=== PATIENT | male | born 1995 | race Native Hawaiian/Other Pacific Islander ===

== ENCOUNTER 2016-11-16 09:27 | Emergency (ER) | payer OTHER ==
[2016-11-16] MEDS ORDERED: ISOVUE-370 76% 100ML VIAL (Q9967) As Ordered ONE (10:00)
[2016-11-16] MEDS ORDERED: methylPREDNISolone INJ 125 MG/2 ML VIAL (J2930) As Ordered ONE (10:39)
[2016-11-16] MEDS ORDERED: KETOROLAC 30 MG/ML VIAL (J1885) As Ordered ONE (10:39)
[2016-11-16] MEDS ORDERED: CLINDAMYCIN 600 MG/50 ML PREMIX BAG As Ordered ONE (10:39)
[2016-11-16 10:42] LABS: BASO # 0.1 K/mm3 (0.0-0.2); BASO % 0.5 % (0.0-1.0); EOS # 0.2 K/mm3 (0.0-0.50); EOS % 1.5 % (0.0-3.0); LARGE UNSTAINED CELL # 0.1 K/mm3 (0.0-0.4); LARGE UNSTAINED CELL % 0.9 % (0.0-4.0); LYMPH # 1.3 K/mm3 (1.5-6.5); LYMPH % 7.4 % (24.0-44.0); MEAN CORPUSCULAR HEMOGLOBIN 31.1 pg (27.0-33.0); MEAN CORPUSCULAR HGB CONC 33.9 g/dl (32.0-36.5); MEAN CORPUSCULAR VOLUME 91.6 fl (80.0-96.0); MONO # 0.8 K/mm3 (0.0-0.8); MONO % 5.3 % (0.0-5.0); NEUTROPHILS # 12.8 K/mm3 (1.8-7.7); NEUTROPHILS % 84.4 % (36.0-66.0); PLATELET COUNT, AUTOMATED 231 k/mm3 (150-450); RED CELL DISTRIBUTION WIDTH 12.5 % (11.5-14.5); WHITE BLOOD COUNT 15.2 K/mm3 (4.0-10.0)
[2016-11-16 11:07] LABS: ANION GAP 8 MEQ/L (8-16); BLOOD UREA NITROGEN 13 MG/DL (7-18); CALCIUM LEVEL 9.2 MG/DL (8.5-10.1); CARBON DIOXIDE LEVEL 28 MEQ/L (21-32); CHLORIDE LEVEL 104 MEQ/L (98-107); CREATININE FOR GFR 1.12 MG/DL (0.70-1.30); GLOMERULAR FILTRATION RATE > 60.0 (>60); GLUCOSE, FASTING 90 MG/DL (70-105); SODIUM LEVEL 140 MEQ/L (136-145)
--- NOTE | 2016-11-16 12:00 | EDDOCDS ---
Physician Documentation [facility] Name: Drew Maynard Age: 21 yrs Sex: Male : 1995 Arrival Date: 11/16/2016 Time: 09:27 Bed TR7 Private MD: Kaushik Oro [facility] Disposition: 11/16/16 11:42 Discharged to Home/Self Care. Impression: Acute recurrent tonsillitis, unspecified. - Condition is Stable. - Discharge Instructions: Tonsillitis. - Prescriptions for lidocaine HCl 2 % Mucous Membrane solution - take 15 milliliters by ORAL route every 3 hours As needed Swish, gargle and spit.; 200 milliliter. Clindamycin HCl 300 mg Oral Capsule - take 1 capsule by ORAL route every 6 hours; 40 capsule. Prednisone 20 mg Oral Tablet - take 2 tablet by ORAL route once daily for 5 days; 10 tablet. - Medication Reconciliation, Local Pharmacy Hours form. - Follow up: Emergency Department; When: As needed; Reason: Worsening of conditions. Follow up: Kaushik Oro [facility]; When: Call to arrange an appointment; Reason: Wound/Symptom Recheck, Recheck today's complaints, Worsening of conditions, Continuance of care, referral to ENT. Follow up: Guillermo Osorio; When: Call to arrange an appointment; Reason: Wound/Symptom Recheck, Recheck today's complaints, Continuance of care. - Problem is an ongoing problem. - Symptoms have improved. Historical: - Allergies: no known allergies; - Home Meds: 1. none - PMHx: none; - PSHx: none; - Social history: Smoking status: Patient uses tobacco products, current every day smoker. No barriers to communication noted, The patient speaks fluent Finnish, Speaks appropriately for age. - Family history: Not pertinent. - : The pt / caregiver states he / she is not on anticoagulants. Home medication list is obtained from the patient. - Exposure Risk Screening:: None identified. Vital Signs: 11/16 09:29 BP 123 / 64; Pulse 76; Resp 18; Temp 98.7(T); Pulse Ox 100% on R/A; Weight 94.35 kg / dem1 208.01 lbs (R); Height 6 ft. 3 in. (190.50 cm) (R); Pain 2/10; 11:40 BP 134 / 60; Pulse 76; Resp 18; Temp 97.0; Pulse Ox 96% on R/A; Pain 7/10; ttb 09:29 Body Mass Index 26.00 (94.35 kg, 190.50 cm) dem1 MDM: 09:52 IV Saline Lock ordered. cc10 09:52 Clindamycin 600 mg IVPB once over 30 mins; dilute in 50mL of NS or D5W ordered. cc10 09:52 Solu-MEDROL 125 mg IVP once ordered. cc10 09:52 ketorolac 30 mg IVP once ordered. cc10 09:53 CBC with Diff Ordered. EDMS 09:53 BMP Ordered. EDMS 09:54 CT Neck With Contrast Ordered. EDMS 10:25 [facility] Payment Agreement was scanned into [employer] and attached to record. pm4 10:26 Financial registration complete. pm4 11:56 CBC with Diff Reviewed. cc10 11:56 BMP Reviewed. cc10 Administered Medications: 10:40 Drug: ketorolac 30 mg [ketorolac 30 mg/mL (1 mL) injection solution (1 mL)] Route: IVP; kr3 Site: left antecubital; 11:30 Follow up: Response: No Adverse Reaction; Pain is decreased ttb 10:42 Drug: Solu-MEDROL 125 mg [Solu-Medrol 500 mg intravenous solution (125 mg)] Route: IVP; kr3 Site: left antecubital; 12:00 Follow up: Response: No Adverse Reaction ttb 10:45 Drug: Clindamycin 600 mg [clindamycin 600 mg/50 mL in 5 % dextrose intravenous kr3 piggyback] Route: IVPB; Infused Over: 30 mins; Site: left antecubital; 11:59 Follow up: Response: No Adverse Reaction; IV Status: Completed infusion ttb Signatures: Dispatcher [employer] EDMS Barb Pinzon RN RN kr3 Nelda Saucedo RN RN ttb Buck Tran PA-C PA-C cc10 Suhail Arellano, Adolfo Reg pm4 The chart was reviewed and I authenticate all verbal orders and agree with the evaluation and treatment provided.Attachments: 10:25 [facility] Payment Agreement pm4 MTDD
--- NOTE | 2016-11-16 12:00 | EDDOCDS ---
Nurse's Notes [facility] Name: Drew Maynard Age: 21 yrs Sex: Male : 1995 Arrival Date: 11/16/2016 Time: 09:27 Bed TR7 Private MD: Kaushik Oro [facility] Diagnosis: Acute recurrent tonsillitis, unspecified Presentation: 11/16 09:45 Presenting complaint: Patient states: has tonsillitis and was told to come for kr3 drainage. was on antibiotics 2 weeks ago for same. Adult Sepsis Screening: The patient does not have new or worsening altered mentation. Patient's respiratory rate is less than 22. Systolic blood pressure is greater than 100. Patient has a qSOFA score of 0- Negative Sepsis Screen. Suicide/Homicide risk assessment- the patient denies having any suicidal and/or homicidal ideations and does not present with any other emotional, behavioral or mental health complaints. 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 Transition of care: patient was not received from another setting of care. 09:45 Acuity: SHRUTHI Level 4 kr3 09:45 Method Of Arrival: Walkin/Carried/Asstd kr3 Triage Assessment: 09:46 General: Appears in no apparent distress, comfortable, Behavior is cooperative. Pain: kr3 Location: throat Pain currently is 8 out of 10 on a pain scale. Pt Declines HIV testing. Neurological: Level of Consciousness is awake, alert. EENT: Reports difficulty swallowing. Respiratory: Respiratory effort is even, unlabored. Derm: Skin is normal. Historical: - Allergies: no known allergies; - Home Meds: 1. none - PMHx: none; - PSHx: none; - Social history: Smoking status: Patient uses tobacco products, current every day smoker. No barriers to communication noted, The patient speaks fluent Bermudian, Speaks appropriately for age. - Family history: Not pertinent. - : The pt / caregiver states he / she is not on anticoagulants. Home medication list is obtained from the patient. - Exposure Risk Screening:: None identified. Screenin:38 Screening information is obtained from the patient. Fall risk: No risks identified. kr3 Assistance ADL's: requires no assistance with activities of daily living. Abuse/DV Screen: The patient / caregiver reports he/she is: not in a situation that causes fear, pain or injury. Nutritional screening: No deficits noted. Advance Directives: Currently, there is no health care proxy. home support is adequate. Assessment: 10:46 General: Appears in no apparent distress, comfortable, Behavior is cooperative. Pain: kr3 Location: throat Pain currently is 7 out of 10 on a pain scale. Neurological: No deficits noted. EENT: Reports difficulty swallowing. Respiratory: Respiratory effort is even, unlabored. Derm: Skin is normal. 11:11 General: Appears in no apparent distress, Behavior is cooperative. EENT: Throat is rs3 reddened has enlarged tonsils on right on left bilaterally with gag reflex present, Parent/caregiver reports the patient having difficulty swallowing since last week. 11:32 General: pt taken to CT. NAD noted. Able to ambulate without diff. Denies diff ttb swallowing at this time. . 11:57 Reassessment: Patient appears in no apparent distress at this time. pt states he is ttb ready for DC. Will f/u with ENT. Vital Signs: 09:29 BP 123 / 64; Pulse 76; Resp 18; Temp 98.7(T); Pulse Ox 100% on R/A; Weight 94.35 kg dem1 (R); Height 6 ft. 3 in. (190.50 cm) (R); Pain 2/10; 11:40 BP 134 / 60; Pulse 76; Resp 18; Temp 97.0; Pulse Ox 96% on R/A; Pain 7/10; ttb 09:29 Body Mass Index 26.00 (94.35 kg, 190.50 cm) [facility] Vitals: 09:29 Log In Time: November 16, 2016 at 09:27. [facility] ED Course: 09:27 Patient visited by Chris Lantigua. dem1 09:27 Patient moved to Waiting dem1 09:29 [facility] is Private Physician. dem1 09:29 Patient visited by Chris Lantigua. dem1 09:30 Patient moved to Pre RCE dem1 09:34 Patient moved to Triage 1 dem1 09:35 [facility] cc10 09:35 Radha House MD is Attending Physician. cc10 09:46 Triage Initiated kr3 09:48 Patient visited by Buck Tran PA-C. cc10 09:48 Patient visited by Buck Tran PA-C. cc10 10:22 Patient name changed from Drew\S\\S\[place]\S\ to Drew\S\Eugene\S\Aleyda. EDMS 10:22 Patient moved to I6 kr3 10:25 [facility] Payment Agreement was scanned into [employer] and attached to record. pm4 10:38 BMP Sent. kr3 10:38 CBC with Diff Sent. kr3 10:38 Inserted saline lock: 20 gauge in left antecubital area and blood collected. The kr3 patient tolerated the procedure well. 10:45 Patient visited by Barb Pinzon,SCOOTER. kr3 11:11 Patient visited by Soheila Brown,SCOOTER. rs3 11:32 Patient visited by Nelda Saucedo RN. ttb 11:40 The patient / caregiver is instructed regarding the plan of care and ED course. Patient ttb has correct armband on for positive identification. 11:40 No procedures done that require assistance. ttb 11:41 Kaushik Oro [facility] is Referral Physician. cc10 11:42 Guillermo Osorio is Referral Physician. cc10 11:57 Discontinued IV lock intact, bleeding controlled, pressure dressing applied, No ttb redness/swelling at site. 11:58 Patient moved to TR7 kr3 Administered Medications: 10:40 Drug: ketorolac 30 mg [ketorolac 30 mg/mL (1 mL) injection solution (1 mL)] Route: IVP; kr3 Site: left antecubital; 11:30 Follow up: Response: No Adverse Reaction; Pain is decreased ttb 10:42 Drug: Solu-MEDROL 125 mg [Solu-Medrol 500 mg intravenous solution (125 mg)] Route: IVP; kr3 Site: left antecubital; 12:00 Follow up: Response: No Adverse Reaction ttb 10:45 Drug: Clindamycin 600 mg [clindamycin 600 mg/50 mL in 5 % dextrose intravenous kr3 piggyback] Route: IVPB; Infused Over: 30 mins; Site: left antecubital; 11:59 Follow up: Response: No Adverse Reaction; IV Status: Completed infusion ttb Order Results: Lab Order: CBC with Diff; SPEC'M 11/16/16 10:35 Test: WHITE BLOOD COUNT; Value: 15.2; Range: 4.0-10.0; Abnormal: Above high normal; Units: K/mm3; Status: F Test: RED BLOOD COUNT; Value: 4.81; Range: 4.30-6.10; Units: M/mm3; Status: F Test: HEMOGLOBIN; Value: 15.0; Range: 14.0-18.0; Units: g/dl; Status: F Test: HEMATOCRIT; Value: 44.1; Range: 42.0-52.0; Units: %; Status: F Test: MEAN CORPUSCULAR VOLUME; Value: 91.6; Range: 80.0-96.0; Units: fl; Status: F Test: MEAN CORPUSCULAR HEMOGLOBIN; Value: 31.1; Range: 27.0-33.0; Units: pg; Status: F Test: MEAN CORPUSCULAR HGB CONC; Value: 33.9; Range: 32.0-36.5; Units: g/dl; Status: F Test: RED CELL DISTRIBUTION WIDTH; Value: 12.5; Range: 11.5-14.5; Units: %; Status: F Test: PLATELET COUNT, AUTOMATED; Value: 231; Range: 150-450; Units: k/mm3; Status: F Test: NEUTROPHILS %; Value: 84.4; Range: 36.0-66.0; Abnormal: Above high normal; Units: %; Status: F Test: LYMPH %; Value: 7.4; Range: 24.0-44.0; Abnormal: Below low normal; Units: %; Status: F Test: MONO %; Value: 5.3; Range: 0.0-5.0; Abnormal: Above high normal; Units: %; Status: F Test: EOS %; Value: 1.5; Range: 0.0-3.0; Units: %; Status: F Test: BASO %; Value: 0.5; Range: 0.0-1.0; Units: %; Status: F Test: LARGE UNSTAINED CELL %; Value: 0.9; Range: 0.0-4.0; Units: %; Status: F Test: NEUTROPHILS #; Value: 12.8; Range: 1.8-7.7; Abnormal: Above high normal; Units: K/mm3; Status: F Test: LYMPH #; Value: 1.3; Range: 1.5-6.5; Abnormal: Below low normal; Units: K/mm3; Status: F Test: MONO #; Value: 0.8; Range: 0.0-0.8; Units: K/mm3; Status: F Test: EOS #; Value: 0.2; Range: 0.0-0.50; Units: K/mm3; Status: F Test: BASO #; Value: 0.1; Range: 0.0-0.2; Units: K/mm3; Status: F Test: LARGE UNSTAINED CELL #; Value: 0.1; Range: 0.0-0.4; Units: K/mm3; Status: F Lab Order: [facility]; SPEC'M 11/16/16 10:35 Test: GLUCOSE, FASTING; Value: 90; Range: 70-105; Units: MG/DL; Status: F Test: BLOOD UREA NITROGEN; Value: 13; Range: 7-18; Units: MG/DL; Status: F Test: CREATININE FOR GFR; Value: 1.12; Range: 0.70-1.30; Units: MG/DL; Status: F Test: GLOMERULAR FILTRATION RATE; Value: > 60.0; Range: >60; Status: F Test: SODIUM LEVEL; Value: 140; Range: 136-145; Units: MEQ/L; Status: F Test: POTASSIUM SERUM; Value: 4.0; Range: 3.5-5.1; Units: MEQ/L; Status: F Test: CHLORIDE LEVEL; Value: 104; Range: 98-107; Units: MEQ/L; Status: F Test: CARBON DIOXIDE LEVEL; Value: 28; Range: 21-32; Units: MEQ/L; Status: F Test: ANION GAP; Value: 8; Range: 8-16; Units: MEQ/L; Status: F Test: CALCIUM LEVEL; Value: 9.2; Range: 8.5-10.1; Units: MG/DL; Status: F Test Note: ; Units are mL/min/1.73 m2 Chronic Kidney Disease Staging per NKF: Stage I & II GFR >=60 Normal to Mildly Decreased Stage III GFR 30-59 Moderately Decreased Stage IV GFR 15-29 Severely Decreased Stage V GFR <15 Very Little GFR Left ESRD GFR <15 on ROVING SIZER Outcome: 11:40 Discharge Assessment: Patient awake, alert and oriented x 3. No cognitive and/or ttb functional deficits noted. Patient verbalized understanding of disposition instructions. Patient awake and alert. patient administered narcotics - no. The following High Risk Discharge criteria are identified: None. Discharged to home ambulatory. Condition: good Condition: stable Condition: improved. Discharge instructions given to patient, Instructed on discharge instructions, follow up and referral plans. medication usage, Demonstrated understanding of instructions, medications, Pt was receptive of discharge instructions/ teaching. Prescriptions given X 3. CT Study completed. Property :Personal belongings accompany Pt. 11:42 Discharge ordered by Provider. cc10 12:00 Patient left the ED. ttb Signatures: Dispatcher [employer] EDBarb Mai,RN RN ventura3 Soheila Brown,RN RN rs3 Chris Lantigua1 Nelda Saucedo RN RN ttb Buck Tran PA-C PAChristian cc10 Suhail Arellano, Reg Reg pm4 ANTOLIND
--- NOTE | 2016-11-16 12:10 | REP ---
CT NECK WITH CONTRAST: HISTORY: Rule out abscess. Contrast: Isovue 370, 75 mL. There is enlargement of the tonsils greater on the right than on the left. There is superior extension of the tonsillar enlargement into the nasopharynx. There is effacement of the eustachian tubes and right fossa of Rosenmuller. There is partial effacement of the left fossa of Rosenmuller. There is medial extension into the soft palate. There is inferior extension of the tonsillar enlargement into the lateral felipe of the oropharynx. There is moderate mass effect on the oropharynx and mild mass effect on the nasopharynx. The hypopharynx, larynx and subglottic trachea are normal in appearance. The salivary and thyroid glands are normal. Enlarged lymph nodes 1.9 and 1.7 cm in width are present in the right internal jugular chain at the level of the susie- and hypopharynx. An enlarged lymph node 1.5 cm in width is present in the left internal jugular chain at the level of the susie- and hypopharynx. Small lymph nodes less than 1 cm in size are present in the posterior triangles, submandibular and submental areas. The lung apices are clear. The visualized sinuses are clear. IMPRESSION: The above findings are consistent with tonsillitis and lymphadenitis. There is moderate mass effect on the oropharynx and mild mass effect on the nasopharynx. Signed by Melo Sesay MD 11/16/2016 12:17 P
--- NOTE | 2016-11-18 13:00 | EDDOCDS ---
Physician Documentation [facility] Name: Drew Maynard Age: 21 yrs Sex: Male : 1995 Arrival Date: 11/16/2016 Time: 09:27 Bed TR7 Private MD: Kaushik Oro [facility] Disposition: 11/16/16 11:42 Discharged to Home/Self Care. Impression: Acute recurrent tonsillitis, unspecified. - Condition is Stable. - Discharge Instructions: Tonsillitis. - Prescriptions for lidocaine HCl 2 % Mucous Membrane solution - take 15 milliliters by ORAL route every 3 hours As needed Swish, gargle and spit.; 200 milliliter. Clindamycin HCl 300 mg Oral Capsule - take 1 capsule by ORAL route every 6 hours; 40 capsule. Prednisone 20 mg Oral Tablet - take 2 tablet by ORAL route once daily for 5 days; 10 tablet. - Medication Reconciliation, Local Pharmacy Hours form. - Follow up: Emergency Department; When: As needed; Reason: Worsening of conditions. Follow up: Kaushik Oro [facility]; When: Call to arrange an appointment; Reason: Wound/Symptom Recheck, Recheck today's complaints, Worsening of conditions, Continuance of care, referral to ENT. Follow up: Guillermo Osorio; When: Call to arrange an appointment; Reason: Wound/Symptom Recheck, Recheck today's complaints, Continuance of care. - Problem is an ongoing problem. - Symptoms have improved. Historical: - Allergies: no known allergies; - Home Meds: 1. none - PMHx: none; - PSHx: none; - Social history: Smoking status: Patient uses tobacco products, current every day smoker. No barriers to communication noted, The patient speaks fluent [place]ican, Speaks appropriately for age. - Family history: Not pertinent. - : The pt / caregiver states he / she is not on anticoagulants. Home medication list is obtained from the patient. - Exposure Risk Screening:: None identified. Vital Signs: 11/16 09:29 BP 123 / 64; Pulse 76; Resp 18; Temp 98.7(T); Pulse Ox 100% on R/A; Weight 94.35 kg / dem1 208.01 lbs (R); Height 6 ft. 3 in. (190.50 cm) (R); Pain 2/10; 11:40 BP 134 / 60; Pulse 76; Resp 18; Temp 97.0; Pulse Ox 96% on R/A; Pain 7/10; ttb 09:29 Body Mass Index 26.00 (94.35 kg, 190.50 cm) dem1 MDM: 09:52 IV Saline Lock ordered. cc10 09:52 Clindamycin 600 mg IVPB once over 30 mins; dilute in 50mL of NS or D5W ordered. cc10 09:52 Solu-MEDROL 125 mg IVP once ordered. cc10 09:52 ketorolac 30 mg IVP once ordered. cc10 09:53 CBC with Diff Ordered. EDMS 09:53 BMP Ordered. EDMS 09:54 CT Neck With Contrast Ordered. EDMS 10:25 [facility] Payment Agreement was scanned into [employer] and attached to record. pm4 10:26 Financial registration complete. pm4 11:56 CBC with Diff Reviewed. cc10 11:56 BMP Reviewed. cc10 11/17 07:00 T-Sheet-- Draft Copy was scanned into [employer] and attached to record. gb 21:04 ED course: dr osorio faxed formal report of ct neck for fu mlg. ml Administered Medications: 11/16 10:40 Drug: ketorolac 30 mg [ketorolac 30 mg/mL (1 mL) injection solution (1 mL)] Route: IVP; kr3 Site: left antecubital; 11:30 Follow up: Response: No Adverse Reaction; Pain is decreased ttb 10:42 Drug: Solu-MEDROL 125 mg [Solu-Medrol 500 mg intravenous solution (125 mg)] Route: IVP; kr3 Site: left antecubital; 12:00 Follow up: Response: No Adverse Reaction ttb 10:45 Drug: Clindamycin 600 mg [clindamycin 600 mg/50 mL in 5 % dextrose intravenous kr3 piggyback] Route: IVPB; Infused Over: 30 mins; Site: left antecubital; 11:59 Follow up: Response: No Adverse Reaction; IV Status: Completed infusion ttb Signatures: Dispatcher [employer] EDMS Cole De Luna MD MD ml Gracie Michel, Adolfo Reg gb Barb Pinzon RN RN kr3 Nelda Saucedo RN RN ttb Buck Tran PA-C PAChristian cc10 Suhail Arellano, Reg Reg pm4 The chart was reviewed and I authenticate all verbal orders and agree with the evaluation and treatment provided.Attachments: 10:25 [facility] Payment Agreement pm4 11/17 07:00 T-Sheet-- Draft Copy gb Chart Complete MTDD
--- NOTE | 2016-11-18 13:01 | EDDOCDS ---
Nurse's Notes [facility] Name: Drew Maynard Age: 21 yrs Sex: Male : 1995 Arrival Date: 11/16/2016 Time: 09:27 Bed TR7 Private MD: Kaushik Oro [facility] Diagnosis: Acute recurrent tonsillitis, unspecified Presentation: 11/16 09:45 Presenting complaint: Patient states: has tonsillitis and was told to come for kr3 drainage. was on antibiotics 2 weeks ago for same. Adult Sepsis Screening: The patient does not have new or worsening altered mentation. Patient's respiratory rate is less than 22. Systolic blood pressure is greater than 100. Patient has a qSOFA score of 0- Negative Sepsis Screen. Suicide/Homicide risk assessment- the patient denies having any suicidal and/or homicidal ideations and does not present with any other emotional, behavioral or mental health complaints. 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 Transition of care: patient was not received from another setting of care. 09:45 Acuity: SHRUTHI Level 4 kr3 09:45 Method Of Arrival: Walkin/Carried/Asstd kr3 Triage Assessment: 09:46 General: Appears in no apparent distress, comfortable, Behavior is cooperative. Pain: kr3 Location: throat Pain currently is 8 out of 10 on a pain scale. Pt Declines HIV testing. Neurological: Level of Consciousness is awake, alert. EENT: Reports difficulty swallowing. Respiratory: Respiratory effort is even, unlabored. Derm: Skin is normal. Historical: - Allergies: no known allergies; - Home Meds: 1. none - PMHx: none; - PSHx: none; - Social history: Smoking status: Patient uses tobacco products, current every day smoker. No barriers to communication noted, The patient speaks fluent Mauritian, Speaks appropriately for age. - Family history: Not pertinent. - : The pt / caregiver states he / she is not on anticoagulants. Home medication list is obtained from the patient. - Exposure Risk Screening:: None identified. Screenin:38 Screening information is obtained from the patient. Fall risk: No risks identified. kr3 Assistance ADL's: requires no assistance with activities of daily living. Abuse/DV Screen: The patient / caregiver reports he/she is: not in a situation that causes fear, pain or injury. Nutritional screening: No deficits noted. Advance Directives: Currently, there is no health care proxy. home support is adequate. Assessment: 10:46 General: Appears in no apparent distress, comfortable, Behavior is cooperative. Pain: kr3 Location: throat Pain currently is 7 out of 10 on a pain scale. Neurological: No deficits noted. EENT: Reports difficulty swallowing. Respiratory: Respiratory effort is even, unlabored. Derm: Skin is normal. 11:11 General: Appears in no apparent distress, Behavior is cooperative. EENT: Throat is rs3 reddened has enlarged tonsils on right on left bilaterally with gag reflex present, Parent/caregiver reports the patient having difficulty swallowing since last week. 11:32 General: pt taken to CT. NAD noted. Able to ambulate without diff. Denies diff ttb swallowing at this time. . 11:57 Reassessment: Patient appears in no apparent distress at this time. pt states he is ttb ready for DC. Will f/u with ENT. Vital Signs: 09:29 BP 123 / 64; Pulse 76; Resp 18; Temp 98.7(T); Pulse Ox 100% on R/A; Weight 94.35 kg dem1 (R); Height 6 ft. 3 in. (190.50 cm) (R); Pain 2/10; 11:40 BP 134 / 60; Pulse 76; Resp 18; Temp 97.0; Pulse Ox 96% on R/A; Pain 7/10; ttb 09:29 Body Mass Index 26.00 (94.35 kg, 190.50 cm) [facility] Vitals: 09:29 Log In Time: November 16, 2016 at 09:27. [facility] ED Course: 09:27 Patient visited by Chris Lantigua. dem1 09:27 Patient moved to Waiting dem1 09:29 [facility] is Private Physician. dem1 09:29 Patient visited by Chris Lantigua. dem1 09:30 Patient moved to Pre RCE dem1 09:34 Patient moved to Triage 1 dem1 09:35 [facility] cc10 09:35 Radha House MD is Attending Physician. cc10 09:46 Triage Initiated kr3 09:48 Patient visited by Buck Tran PA-C. cc10 09:48 Patient visited by Buck Tran PA-C. cc10 10:22 Patient name changed from Drew\S\\S\[place]\S\ to Drew\S\Eugeen\S\Aleyda. EDMS 10:22 Patient moved to I6 kr3 10:25 [facility] Payment Agreement was scanned into [employer] and attached to record. pm4 10:38 BMP Sent. kr3 10:38 CBC with Diff Sent. kr3 10:38 Inserted saline lock: 20 gauge in left antecubital area and blood collected. The kr3 patient tolerated the procedure well. 10:45 Patient visited by Barb Pinzon,SCOOTER. kr3 11:11 Patient visited by Soheila Brown,SCOOTER. rs3 11:32 Patient visited by Nelda Saucedo RN. ttb 11:40 The patient / caregiver is instructed regarding the plan of care and ED course. Patient ttb has correct armband on for positive identification. 11:40 No procedures done that require assistance. ttb 11:41 Kaushik Oro [facility] is Referral Physician. cc10 11:42 Guillermo Osorio is Referral Physician. cc10 11:57 Discontinued IV lock intact, bleeding controlled, pressure dressing applied, No ttb redness/swelling at site. 11:58 Patient moved to TR7 kr3 12:35 CT Neck With Contrast Returned. EDMS 0106 07:00 T-Sheet-- Draft Copy was scanned into [employer] and attached to record. gb Administered Medications: 11/16 10:40 Drug: ketorolac 30 mg [ketorolac 30 mg/mL (1 mL) injection solution (1 mL)] Route: IVP; kr3 Site: left antecubital; 11:30 Follow up: Response: No Adverse Reaction; Pain is decreased ttb 10:42 Drug: Solu-MEDROL 125 mg [Solu-Medrol 500 mg intravenous solution (125 mg)] Route: IVP; kr3 Site: left antecubital; 12:00 Follow up: Response: No Adverse Reaction ttb 10:45 Drug: Clindamycin 600 mg [clindamycin 600 mg/50 mL in 5 % dextrose intravenous kr3 piggyback] Route: IVPB; Infused Over: 30 mins; Site: left antecubital; 11:59 Follow up: Response: No Adverse Reaction; IV Status: Completed infusion ttb Order Results: Lab Order: CBC with Diff; SPEC'M 11/16/16 10:35 Test: WHITE BLOOD COUNT; Value: 15.2; Range: 4.0-10.0; Abnormal: Above high normal; Units: K/mm3; Status: F Test: RED BLOOD COUNT; Value: 4.81; Range: 4.30-6.10; Units: M/mm3; Status: F Test: HEMOGLOBIN; Value: 15.0; Range: 14.0-18.0; Units: g/dl; Status: F Test: HEMATOCRIT; Value: 44.1; Range: 42.0-52.0; Units: %; Status: F Test: MEAN CORPUSCULAR VOLUME; Value: 91.6; Range: 80.0-96.0; Units: fl; Status: F Test: MEAN CORPUSCULAR HEMOGLOBIN; Value: 31.1; Range: 27.0-33.0; Units: pg; Status: F Test: MEAN CORPUSCULAR HGB CONC; Value: 33.9; Range: 32.0-36.5; Units: g/dl; Status: F Test: RED CELL DISTRIBUTION WIDTH; Value: 12.5; Range: 11.5-14.5; Units: %; Status: F Test: PLATELET COUNT, AUTOMATED; Value: 231; Range: 150-450; Units: k/mm3; Status: F Test: NEUTROPHILS %; Value: 84.4; Range: 36.0-66.0; Abnormal: Above high normal; Units: %; Status: F Test: LYMPH %; Value: 7.4; Range: 24.0-44.0; Abnormal: Below low normal; Units: %; Status: F Test: MONO %; Value: 5.3; Range: 0.0-5.0; Abnormal: Above high normal; Units: %; Status: F Test: EOS %; Value: 1.5; Range: 0.0-3.0; Units: %; Status: F Test: BASO %; Value: 0.5; Range: 0.0-1.0; Units: %; Status: F Test: LARGE UNSTAINED CELL %; Value: 0.9; Range: 0.0-4.0; Units: %; Status: F Test: NEUTROPHILS #; Value: 12.8; Range: 1.8-7.7; Abnormal: Above high normal; Units: K/mm3; Status: F Test: LYMPH #; Value: 1.3; Range: 1.5-6.5; Abnormal: Below low normal; Units: K/mm3; Status: F Test: MONO #; Value: 0.8; Range: 0.0-0.8; Units: K/mm3; Status: F Test: EOS #; Value: 0.2; Range: 0.0-0.50; Units: K/mm3; Status: F Test: BASO #; Value: 0.1; Range: 0.0-0.2; Units: K/mm3; Status: F Test: LARGE UNSTAINED CELL #; Value: 0.1; Range: 0.0-0.4; Units: K/mm3; Status: F Lab Order: [facility]; SPEC'M 11/16/16 10:35 Test: GLUCOSE, FASTING; Value: 90; Range: 70-105; Units: MG/DL; Status: F Test: BLOOD UREA NITROGEN; Value: 13; Range: 7-18; Units: MG/DL; Status: F Test: CREATININE FOR GFR; Value: 1.12; Range: 0.70-1.30; Units: MG/DL; Status: F Test: GLOMERULAR FILTRATION RATE; Value: > 60.0; Range: >60; Status: F Test: SODIUM LEVEL; Value: 140; Range: 136-145; Units: MEQ/L; Status: F Test: POTASSIUM SERUM; Value: 4.0; Range: 3.5-5.1; Units: MEQ/L; Status: F Test: CHLORIDE LEVEL; Value: 104; Range: 98-107; Units: MEQ/L; Status: F Test: CARBON DIOXIDE LEVEL; Value: 28; Range: 21-32; Units: MEQ/L; Status: F Test: ANION GAP; Value: 8; Range: 8-16; Units: MEQ/L; Status: F Test: CALCIUM LEVEL; Value: 9.2; Range: 8.5-10.1; Units: MG/DL; Status: F Test Note: ; Units are mL/min/1.73 m2 Chronic Kidney Disease Staging per NKF: Stage I & II GFR >=60 Normal to Mildly Decreased Stage III GFR 30-59 Moderately Decreased Stage IV GFR 15-29 Severely Decreased Stage V GFR <15 Very Little GFR Left ESRD GFR <15 on CUSTODIAL ENGINEER Radiology Order: CT Neck With Contrast Test: CT Neck With Contrast REASON FOR EXAMINATION: r/o abscess; CT NECK WITH CONTRAST:; ; HISTORY: Rule out abscess.; ; Contrast: Isovue 370, 75 mL.; ; There is enlargement of the tonsils greater on the right than on the left. There; is superior extension of the tonsillar enlargement into the nasopharynx. There; is effacement of the eustachian tubes and right fossa of Rosenmuller. There is; partial effacement of the left fossa of Rosenmuller. There is medial extension; into the soft palate. There is inferior extension of the tonsillar enlargement; into the lateral felipe of the oropharynx. There is moderate mass effect on the; oropharynx and mild mass effect on the nasopharynx. The hypopharynx, larynx and; subglottic trachea are normal in appearance. The salivary and thyroid glands are; normal. Enlarged lymph nodes 1.9 and 1.7 cm in width are present in the right; internal jugular chain at the level of the susie- and hypopharynx. An enlarged; lymph node 1.5 cm in width is present in the left internal jugular chain at the; level of the susie- and hypopharynx. Small lymph nodes less than 1 cm in size are; present in the posterior triangles, submandibular and submental areas. The lung; apices are clear. The visualized sinuses are clear.; ; IMPRESSION:; ; The above findings are consistent with tonsillitis and lymphadenitis. There is; moderate mass effect on the oropharynx and mild mass effect on the nasopharynx.; ; ; Signed by; Melo Sesay MD 11/16/2016 12:17 P; Outcome: 11:40 Discharge Assessment: Patient awake, alert and oriented x 3. No cognitive and/or ttb functional deficits noted. Patient verbalized understanding of disposition instructions. Patient awake and alert. patient administered narcotics - no. The following High Risk Discharge criteria are identified: None. Discharged to home ambulatory. Condition: good Condition: stable Condition: improved. Discharge instructions given to patient, Instructed on discharge instructions, follow up and referral plans. medication usage, Demonstrated understanding of instructions, medications, Pt was receptive of discharge instructions/ teaching. Prescriptions given X 3. CT Study completed. Property :Personal belongings accompany Pt. 11:42 Discharge ordered by Provider. cc10 12:00 Patient left the ED. ttb Signatures: Dispatcher [employer] EDMS Gracie Michel, Reg Reg gb Barb Pinzon,RN RN kr3 Soheila BrownRN RN rs3 Chris Lantigua1 Nelda Saucedo RN RN ttb Buck Tran PA-Isidra PA-C cc10 Suhail Arellano, Reg Reg pm4 Chart Complete MTDD
--- NOTE | 2016-11-18 13:01 | EDDOCDS ---
Physician Documentation [facility] Name: Drew Maynard Age: 21 yrs Sex: Male : 1995 Arrival Date: 11/16/2016 Time: 09:27 Bed TR7 Private MD: Kaushik Oro [facility] Disposition: 11/16/16 11:42 Discharged to Home/Self Care. Impression: Acute recurrent tonsillitis, unspecified. - Condition is Stable. - Discharge Instructions: Tonsillitis. - Prescriptions for lidocaine HCl 2 % Mucous Membrane solution - take 15 milliliters by ORAL route every 3 hours As needed Swish, gargle and spit.; 200 milliliter. Clindamycin HCl 300 mg Oral Capsule - take 1 capsule by ORAL route every 6 hours; 40 capsule. Prednisone 20 mg Oral Tablet - take 2 tablet by ORAL route once daily for 5 days; 10 tablet. - Medication Reconciliation, Local Pharmacy Hours form. - Follow up: Emergency Department; When: As needed; Reason: Worsening of conditions. Follow up: Kaushik Oro [facility]; When: Call to arrange an appointment; Reason: Wound/Symptom Recheck, Recheck today's complaints, Worsening of conditions, Continuance of care, referral to ENT. Follow up: Guillermo Osorio; When: Call to arrange an appointment; Reason: Wound/Symptom Recheck, Recheck today's complaints, Continuance of care. - Problem is an ongoing problem. - Symptoms have improved. Historical: - Allergies: no known allergies; - Home Meds: 1. none - PMHx: none; - PSHx: none; - Social history: Smoking status: Patient uses tobacco products, current every day smoker. No barriers to communication noted, The patient speaks fluent Russian, Speaks appropriately for age. - Family history: Not pertinent. - : The pt / caregiver states he / she is not on anticoagulants. Home medication list is obtained from the patient. - Exposure Risk Screening:: None identified. Vital Signs: 11/16 09:29 BP 123 / 64; Pulse 76; Resp 18; Temp 98.7(T); Pulse Ox 100% on R/A; Weight 94.35 kg / dem1 208.01 lbs (R); Height 6 ft. 3 in. (190.50 cm) (R); Pain 2/10; 11:40 BP 134 / 60; Pulse 76; Resp 18; Temp 97.0; Pulse Ox 96% on R/A; Pain 7/10; ttb 09:29 Body Mass Index 26.00 (94.35 kg, 190.50 cm) dem1 MDM: 09:52 IV Saline Lock ordered. cc10 09:52 Clindamycin 600 mg IVPB once over 30 mins; dilute in 50mL of NS or D5W ordered. cc10 09:52 Solu-MEDROL 125 mg IVP once ordered. cc10 09:52 ketorolac 30 mg IVP once ordered. cc10 09:53 CBC with Diff Ordered. EDMS 09:53 BMP Ordered. EDMS 09:54 CT Neck With Contrast Ordered. EDMS 10:25 [facility] Agreement was scanned into [employer] and attached to record. pm4 10:26 Financial registration complete. pm4 11:56 CBC with Diff Reviewed. cc10 11:56 BMP Reviewed. cc10 11/17 07:00 T-Sheet-- Draft Copy was scanned into [employer] and attached to record. gb 21:04 ED course: dr osorio faxed formal report of ct neck for fu mlg. ml Administered Medications: 11/16 10:40 Drug: ketorolac 30 mg [ketorolac 30 mg/mL (1 mL) injection solution (1 mL)] Route: IVP; kr3 Site: left antecubital; 11:30 Follow up: Response: No Adverse Reaction; Pain is decreased ttb 10:42 Drug: Solu-MEDROL 125 mg [Solu-Medrol 500 mg intravenous solution (125 mg)] Route: IVP; kr3 Site: left antecubital; 12:00 Follow up: Response: No Adverse Reaction ttb 10:45 Drug: Clindamycin 600 mg [clindamycin 600 mg/50 mL in 5 % dextrose intravenous kr3 piggyback] Route: IVPB; Infused Over: 30 mins; Site: left antecubital; 11:59 Follow up: Response: No Adverse Reaction; IV Status: Completed infusion ttb Signatures: Dispatcher [employer] EDMS Cole De Luna MD MD ml Gracie Michel, Adolfo Reg gb Barb Pinzon RN RN kr3 Nelda Saucedo RN RN ttb Buck Tran PA-C PAChristian cc10 Suhail Arellano, Reg Reg pm4 The chart was reviewed and I authenticate all verbal orders and agree with the evaluation and treatment provided.Attachments: 10:25 [facility] Payment Agreement pm4 11/17 07:00 T-Sheet-- Draft Copy gb Chart Complete MTDD
== END 2016-11-16 12:00 | disposition home or self-care (01) ==
LOC: M ED 09:27
DX: J03.91 Acute recurrent tonsillitis, unspecified (principal); Z72.0 Tobacco use
CPT/HCPCS: 36415; 70491; 80048; 85025; 96365; 96375; 99284; J1885; J2930; Q9967

== ENCOUNTER 2016-11-27 21:41 | Emergency (ER) | payer OTHER | END 2016-11-27 22:11 | disposition left against medical advice (07) | LOC: M ED 21:41 | DX: Z53.29 Procedure and treatment not carried out because of patient's decision for other reasons (principal) ==